=== PATIENT | female | born 1955 | race Caucasian/White ===

== ENCOUNTER 2016-04-07 13:50 | Inpatient (IN) | payer OTHER ==
[~2016-04-07] VITALS: Ht 170.2 cm; Wt 66.8 kg
[~2016-04-07 13:50] MED LIST: BACTRIM,SEPT1 TABLET PO; CLEOCIN300 MG PO; COGENTIN0.5 MG PO; Dulcolax PO; FERROUS SULFAT325 MG PO; Folvite PO; HALDOL DEC100 MG/1 M IM; HALDOL DECON50 MG/ML IM; HALDOL5 MG PO; HALOPERIDO100 MG/1 M IM; HALOPERIDO50 MG/1 ML IM; Haldol PO; KEFLEX500 MG PO; MIRTAZAPINE15 MG PO; MIRTAZAPINE30 MG PO; Oscal 500 w/Vitamin PO; PROTONIX IV40 MG PO; PROTONIX40 MG PO; REMERON15 M2 PO; RISPERIDONE2 MG PO; Remeron PO; SEROQUEL; Senokot S,Pericolace PO; THERAGRAN1 TABLET PO; TORADOL10 MG PO; TYLENOL REGULA325 MG PO; Theragran PO; Thiamine,Vitamin B1 PO; VITAMIN D1000 INTUN PO; ZOFRAN4 MG PO
[2016-04-07] MEDS ORDERED: HALDOL DECON50 MG/ML IM (15:09)
[2016-04-07 15:35] LABS: MCH 29.5 PG (29.0-34.0); MCHC 32.8 G/DL (30.0-36.0); MCV 90.1 FL (83-99); MEAN PLAT.VOLUME 12.1 uM^3 (9.5-12.4); PLATELET COUNT 177 K/uL (156-360); RBC DIS.WIDTH-CV 13.9 % (11.8-14.6); RBC DIS.WIDTH-SD 44.8 % (39-53); RED BLOOD COUNT 4.44 M/uL (3.80-5.20)
[2016-04-07 15:44] LABS: CHLORIDE 106 mEq/L (99-109); POTASSIUM 3.5 mEq/L (3.7-5.4); SODIUM 141 mEq/L (136-147)
[2016-04-07 15:46] LABS: GLUCOSE 81 mg/dL (70-99)
[2016-04-07 15:46] LABS: AMPHETAMINE NEGATIVE (500 ng/mL); BARBITURATES NEGATIVE (200 ng/mL); BENZODIAZEPINES NEGATIVE (150 ng/mL); COCAINE NEGATIVE (150 ng/mL); INTERNAL CONTROLS VALID? YES; METHADONE NEGATIVE (200 ng/mL); METHAMPHETAMINE NEGATIVE (500 ng/mL); OPIATES (MORPHINE) NEGATIVE (100 ng/mL); OXYCODONE NEGATIVE (100 ng/mL); PHENCYCLIDINE NEGATIVE (25 ng/mL); PROPOXYPHENE NEGATIVE (300 ng/mL); THC CANNABINOIDS NEGATIVE (50 ng/mL); TRICYCLIC ANTIDEPRESSANTS NEGATIVE (300 ng/mL)
[2016-04-07 15:47] LABS: ANION GAP 13 MEQ/L (2-14)
[2016-04-07 15:49] LABS: GFR ESTIMATE (CALCULATED) > 59 mL/min/; SERUM ETHYL ALCOHOL < 10 mg/dL
[2016-04-07 15:50] LABS: UREA NITROGEN (BUN) 13 mg/dL (9-23)
[2016-04-07 16:44] VITALS: BP 143/84
[2016-04-08 01:18] VITALS: BP 102/66
[2016-04-08 01:48] LABS: CHLORIDE 107 mEq/L (99-109); POTASSIUM 3.8 mEq/L (3.7-5.4); SODIUM 140 mEq/L (136-147)
[2016-04-08 01:51] LABS: ANION GAP 11 MEQ/L (2-14)
[2016-04-08 01:53] LABS: GLUCOSE 104 mg/dL (70-99)
[2016-04-08 01:54] LABS: GFR ESTIMATE (CALCULATED) > 59 mL/min/
[2016-04-08 01:55] LABS: UREA NITROGEN (BUN) 11 mg/dL (9-23)
== END 2016-04-08 01:47 | DRG 885 ==
LOC: EME 13:50 → EDOF 15:09 → 1WEST 15:09
PROVIDERS: Emergency Medicine; Internal Medicine
DX: F20.9 Schizophrenia, unspecified (principal); R45.851 Suicidal ideations; R42 Dizziness and giddiness; I95.1 Orthostatic hypotension; E87.6 Hypokalemia; F10.10 Alcohol abuse, uncomplicated; F50.2 Bulimia nervosa; Z91.81 History of falling
CPT/HCPCS: 80048; 85027; 90839; 93005; 99281; 99285; G0480; Q0177

== ENCOUNTER 2016-04-08 01:32 | Observation (INO) | payer OTHER ==
[~2016-04-08] VITALS: Ht 170.2 cm; Wt 61.9 kg
[2016-04-08 02:19] VITALS: BP 101/57
[2016-04-08 06:00] LABS: HEMATOCRIT 39.3 % (36.0-46.0); MCH 28.1 PG (29.0-34.0); MCV 90.6 FL (83-99); MEAN PLAT.VOLUME 11.9 uM^3 (9.5-12.4); PLATELET COUNT 189 K/uL (156-360); RBC DIS.WIDTH-SD 46.7 % (39-53); RED BLOOD COUNT 4.34 M/uL (3.80-5.20); WHITE BLOOD COUNT 6.6 K/uL (4.1-10.2)
[2016-04-08 06:24] LABS: ALKALINE PHOSPHATASE 44 IU/L (3-129); ANION GAP 8 MEQ/L (2-14); CHLORIDE 108 MEQ/L (99-109); GFR ESTIMATE (CALCULATED) > 59 mL/min/; GLUCOSE 87 mg/dL (70-99); POTASSIUM 4.2 MEQ/L (3.7-5.4); SAMPLE HEMOLYSIS CHECK 0; SAMPLE ICTERIC CHECK 0; SAMPLE LIPEMIA CHECK 0; SODIUM 141 MEQ/L (136-147); TOTAL BILIRUBIN 0.9 MG/DL (0.0-1.0); UREA NITROGEN (BUN) 11 mg/dL (9-23)
[2016-04-08 08:00] VITALS: BP 119/62
[2016-04-08 08:59] VITALS: BP 104/68
[2016-04-08 12:54] VITALS: BP 103/67
== END 2016-04-08 15:50 ==
LOC: 5WEST 01:32
PROVIDERS: Internal Medicine
DX: I95.1 Orthostatic hypotension (principal); F20.9 Schizophrenia, unspecified; E87.6 Hypokalemia; R45.851 Suicidal ideations
CPT/HCPCS: 80053; 85027; G0378; J7030; J7040

== ENCOUNTER 2016-04-08 14:10 | Inpatient (IN) | payer OTHER ==
[~2016-04-08] VITALS: Ht 170.2 cm; Wt 59.1 kg
[2016-04-08 16:01] VITALS: BP 131/72
[2016-04-09 07:52] VITALS: BP 130/71
[2016-04-09 15:35] VITALS: BP 151/74
[2016-04-10 07:31] VITALS: BP 108/59
[2016-04-10 15:55] VITALS: BP 121/65
[2016-04-11 07:38] VITALS: BP 103/56
[2016-04-11 16:03] VITALS: BP 118/61
[2016-04-12 07:50] VITALS: BP 112/56
== END 2016-04-12 13:19 | disposition home or self-care (01) | DRG 312 ==
LOC: 1WEST 14:10
DX: I95.1 Orthostatic hypotension (principal); F20.9 Schizophrenia, unspecified; R45.851 Suicidal ideations
CPT/HCPCS: 97150 GO; 97165 GO

== ENCOUNTER 2016-07-12 11:22 | Emergency (ER) | payer OTHER ==
[~2016-07-12] VITALS: Ht 170.2 cm; Wt 59.3 kg
[2016-07-12] MEDS ORDERED: HALOPERIDO50 MG/1 ML IM (12:46)
[2016-07-12] MEDS ORDERED: NAPROSYN500 MG PO (13:01)
[2016-07-12] MEDS ORDERED: PEN-VEE K,VEET500 MG PO (13:01)
[2016-07-12 13:19] VITALS: BP 138/84
== END 2016-07-12 13:19 | disposition home or self-care (01) ==
LOC: EME 11:22 → RME 11:22
DX: K04.7 Periapical abscess without sinus (principal); K03.81 Cracked tooth
CPT/HCPCS: 99281; 99283